=== PATIENT | male | born 2000 | race Caucasian/White ===

== ENCOUNTER 2023-12-24 17:45 | Emergency (ER) | payer BC ==
[~2023-12-24 17:45] MED LIST: Iopamidol-370 76% 500 ML MDV (1 ML CHARGE) ONE
[2023-12-24 19:38] LABS: #Basophils 0.05 10x3/uL (0.0-0.2); %Basophils 0.6 % (0.0-1.0); %Eosinophils 3.2 % (0.0-10.0); %Lymphocytes 35.3 % (21.0-51.0); %Monocytes 6.7 % (0.0-10.0); %Neutrophils 53.4 % (42.0-75.0); Hematocrit 39.9 % (42.0-52.0); Hemoglobin 13.2 g/dL (14.0-18.0); Mean Corpuscular HGB CONC 33.1 g/dL (32.0-36.0); Mean Corpuscular Hemoglobin 29.7 pg (27.0-31.0); Mean Corpuscular Volume 89.7 fL (78.0-98.0); Mean Platelet Volume 9.6 fL (7.4-10.4); Platelet Count 347 10x3/uL (130-400); RBC Distribution Width 12.8 % (11.5-14.5); Red Blood Cell (RBC) Count 4.45 mill/uL (4.70-6.10)
[2023-12-24 19:49] LABS: ALT (SGPT) 11 U/L (8-55); AST (SGOT) 17 U/L (5-34); Albumin 4.4 g/dL (3.5-5.0); Alkaline Phosphatase 42 U/L (40-110); Anion Gap 16 mmol/L (10-20); BUN (Urea Nitrogen) 13 mg/dL (8.9-20.6); Bilirubin, Total 0.6 mg/dL (0.2-1.2); Calc. Creatinine Clearance 0 mL/min (70-130); Calcium 9.2 mg/dL (7.8-10.44); Carbon Dioxide 22 mmol/L (22-29); Chloride 106 mmol/L (98-107); Estimated GFR 110; Globulin 2.9 g/dL (2.4-3.5); Glucose 118 mg/dL (70-105); Lipase 23 U/L (8-78); Potassium 3.6 mmol/L (3.5-5.1); Protein, Total 7.3 g/dL (6.0-8.3); Sodium 140 mmol/L (136-145)
[2023-12-24] MEDS ORDERED: Acetaminophen 500 MG TAB ONE (20:15)
[2023-12-24] MEDS ORDERED: Bacitracin 1 PK ONE (20:15)
[2023-12-24] MEDS ORDERED: Boostrix 0.5 ML (Tdap) VIAL (>/=7 yrs of age) ONE (20:19)
[2023-12-24] MEDS ORDERED: Ketorolac Tromethamine 30 MG (1 mL) VIAL ONE (20:46)
== END 2023-12-24 21:40 | disposition home or self-care (01) ==
LOC: ERS 17:45
DX: S12.601A Unspecified nondisplaced fracture of seventh cervical vertebra, initial encounter for closed fracture (principal); S02.2XXA Fracture of nasal bones, initial encounter for closed fracture; X58.XXXA Exposure to other specified factors, initial encounter
CPT/HCPCS: 70450; 71045; 71260; 72125; 72170; 74177; 80053; 83690; 85025; 90471; 90715; 96374; G0390; J1885; Q9967